=== PATIENT | female | born 1955 | race Caucasian/White ===

== ENCOUNTER 2020-04-26 12:30 | Emergency (ER) | payer MEDICARE, OTHER, SELFPAY ==
[2020-04-26 12:47] VITALS: BP 143/73; BP 155/64; PULSE 69; PULSE 74; RESP 16; TEMP 36.6; O2SAT 96; O2SAT 97; BMI 37.0
--- NOTE | 2020-04-26 12:53 | XR_ITS ---
EXAMINATION: BILATERAL KNEE X-RAY CLINICAL INFORMATION: Fall. Pain and bruising. COMPARISON: None TECHNIQUE: 4 views of each knee FINDINGS: Left: Bone alignment is normal. No fracture or dislocation is seen. Joint spaces are normal. There is no joint effusion. Right: Bone alignment is normal. No fracture or dislocation is seen. Joint spaces are normal. There is no joint effusion. XR/XR knee RT 3V IMPRESSION: No fracture or dislocation seen.
--- NOTE | 2020-04-26 12:53 | XR_ITS ---
EXAMINATION: CHEST X-RAY AND PELVIS AND LEFT HIP X-RAY CLINICAL INFORMATION: Fall COMPARISON: Chest, abdomen and pelvis CT May 2019 TECHNIQUE: 2 views of the chest and one view of the pelvis and 2 views of the left hip FINDINGS: Chest: The cardiac and mediastinal contours are normal. The lungs are clear. There is no pleural effusion or pneumothorax. There are degenerative changes of the spine. Pelvis and left hip: Bone alignment is normal. No fracture or dislocation is seen. There is bilateral hip arthritis with joint space narrowing and osteophyte formation, left greater than right. There are cystic areas in the left femoral head. These are similar to abdominal and pelvic CT scan May 2019 and likely represent subchondral cystic change related to arthritis. There are postsurgical changes with fusion hardware in the lower lumbar spine. Soft tissues are unremarkable. XR/XR chest 2V IMPRESSION: Chest: No evidence for acute disease in the chest Pelvis and left hip x-ray: No fracture or dislocation. Left hip arthritis.
--- NOTE | 2020-04-26 12:53 | XR_ITS ---
EXAMINATION: CHEST X-RAY AND PELVIS AND LEFT HIP X-RAY CLINICAL INFORMATION: Fall COMPARISON: Chest, abdomen and pelvis CT May 2019 TECHNIQUE: 2 views of the chest and one view of the pelvis and 2 views of the left hip FINDINGS: Chest: The cardiac and mediastinal contours are normal. The lungs are clear. There is no pleural effusion or pneumothorax. There are degenerative changes of the spine. Pelvis and left hip: Bone alignment is normal. No fracture or dislocation is seen. There is bilateral hip arthritis with joint space narrowing and osteophyte formation, left greater than right. There are cystic areas in the left femoral head. These are similar to abdominal and pelvic CT scan May 2019 and likely represent subchondral cystic change related to arthritis. There are postsurgical changes with fusion hardware in the lower lumbar spine. Soft tissues are unremarkable. XR/XR hip LT w PEL1V IMPRESSION: Chest: No evidence for acute disease in the chest Pelvis and left hip x-ray: No fracture or dislocation. Left hip arthritis.
--- NOTE | 2020-04-26 12:53 | ECG_ITS ---
Test Reason : FALL Blood Pressure : / mmHG Vent. Rate : 081 BPM Atrial Rate : 081 BPM P-R Int : 178 ms QRS Dur : 086 ms QT Int : 412 ms P-R-T Axes : 072 082 034 degrees QTc Int : 478 ms Poor data quality Normal sinus rhythm Artefactual data in lead V5 Nonspecific ST abnormality Abnormal ECG When compared with ECG of 07-JUN-2019 00:28, Repeat EKG Referred By: Georgia Joseph Electronically Signed By:RAYA BURTON MD
--- NOTE | 2020-04-26 12:53 | CT_ITS ---
EXAMINATION: CT BRAIN AND CT CERVICAL SPINE WITHOUT CONTRAST. CLINICAL INFORMATION: Multiple falls. COMPARISON: None TECHNIQUE: 5 mm thin axial and reformatted 2 mm thin sagittal and coronal images of brain were obtained. Axial 3 mm thin and reformatted 2 mm thin sagittal and coronal images of cervical spine were obtained. DLP 1464 mGy/cm. FINDINGS: BRAIN: There is no acute intra-axial, extra-axial bleed, masses, collection or midline shift. There is no acute infarction in evolution. There is a thalamocaudate groove Virchow Casper space The lateral ventricles are symmetrical in size and configuration without ventriculomegaly. The eng to white matter differentiation is maintained normal. There is no abnormality seen in the posterior fossa. Bone windows reveal no calvarial abnormality. There is no scalp soft tissue swelling. Bilateral paranasal sinuses and mastoid air cells are well-aerated aerated. CERVICAL SPINE: There is mild reversal of cervical lordosis. The vertebral heights, alignment and disc heights are normal. The craniovertebral junction and the C1-C2 alignment is normal. There is no visible acute fracture, dislocation or subluxation seen. No lytic or sclerotic process seen. There is medial deviation of calcified internal carotid arteries in the retropharyngeal space. The prevertebral and paravertebral soft tissues are normal. The thyroid lobes are symmetrical and normal. Both parotid and submandibular glands are symmetrical and normal. The airway is widely patent. The lung apices are clear. Mild degenerative changes right TM joint are noted. CT/CT cervical spine wo con IMPRESSION: No acute intracranial process seen. No visible acute fracture, dislocation or subluxation of cervical spine. Mild degenerative changes right TM joint.
--- NOTE | 2020-04-26 12:53 | XR_ITS ---
EXAMINATION: BILATERAL KNEE X-RAY CLINICAL INFORMATION: Fall. Pain and bruising. COMPARISON: None TECHNIQUE: 4 views of each knee FINDINGS: Left: Bone alignment is normal. No fracture or dislocation is seen. Joint spaces are normal. There is no joint effusion. Right: Bone alignment is normal. No fracture or dislocation is seen. Joint spaces are normal. There is no joint effusion. XR/XR knee LT 3V IMPRESSION: No fracture or dislocation seen.
--- NOTE | 2020-04-26 13:01 | ED.FALL ---
HPI - Fall General Chief Complaint: Fall Stated Complaint: MULTIPLE FALLS Time Seen by Provider: 04/26/20 12:40 Source: patient and EMS Mode of arrival: EMS History of Present Illness HPI Narrative: 64-year-old female with a past medical history of ischemic colitis, PVD, chronic lymphedema, back pain, asthma, GISELLE, BIBA for multiple falls at home since , most recently 2 this morning. Reports she is unsure why she is falling, does not remember the falls and wakes up on the ground. Admits lives with daughter, ambulates with cane at baseline. Reports bilateral knee, and back pain. Denies symptoms prior to fall including CP/SOB, lightheadedness/dizziness. Denies urinary incontinence/retention, recent illness, cough, fever, headache, vision changes, abdominal pain, nausea/vomiting. Admits was recently started on amitriptyline, otherwise no new medications MD complaint: fall Related Data Home Medications Medication Instructions Recorded Confirmed amitriptyline 10 mg PO DAILY 04/26/20 04/26/20 azithromycin 500 mg PO DAILY 04/26/20 04/26/20 cyclobenzaprine 10 mg PO TID PRN 04/26/20 04/26/20 docusate sodium 100 mg PO BID 04/26/20 04/26/20 escitalopram oxalate 20 mg PO DAILY 04/26/20 04/26/20 furosemide 20 mg PO DAILY 04/26/20 04/26/20 lorazepam 0.5 mg PO DAILY 04/26/20 04/26/20 morphine 10 mg PO BID 04/26/20 04/26/20 omeprazole 20 mg PO DAILY PRN 04/26/20 04/26/20 oxycodone 15 mg PO QID 04/26/20 04/26/20 Previous Rx's Medication Instructions Recorded levofloxacin 750 mg PO Q24H 5 Days #5 tab 04/26/20 Allergies Allergy/AdvReac Type Severity Reaction Status Date / Time adhesive tape [TAPE,ADHESIVE] Allergy Unknown RASH Unverified 12/11/19 17:08 amoxicillin [From AUGMENTIN] Allergy Unknown SHORTNESS Unverified 12/11/19 17:08 OF BREATH atropine [From ] Allergy Unknown ANGIOEDEMA Unverified 12/11/19 17:08 bacitracin Allergy Unknown ITCH Unverified 12/11/19 17:08 [From NEOSPORIN ([id number])] bee pollen [BEE STINGS] Allergy Unknown ANGIOEDEMA Unverified 12/11/19 17:08 cephalexin [CEPHALEXIN] Allergy Unknown SHORTNESS Unverified 12/11/19 17:08 OF BREATH clavulanic acid Allergy Unknown SHORTNESS Unverified 12/11/19 17:08 [From AUGMENTIN] OF BREATH clindamycin [CLINDAMYCIN] Allergy Unknown ANAPHYLAXIS Unverified 12/11/19 17:08 doxycycline [DOXYCYCLINE] Allergy Unknown ANGIOEDEMA Unverified 12/11/19 17:08 duloxetine [DULOXETINE] Allergy Unknown UNK Unverified 12/11/19 17:08 hyoscyamine [From ] Allergy Unknown ANGIOEDEMA Unverified 12/11/19 17:08 latex [LATEX] Allergy Unknown ITCHY Unverified 12/11/19 17:08 mineral oil [From AQUAPHOR] Allergy Unknown RASH Unverified 12/11/19 17:08 neomycin Allergy Unknown ITCH Unverified 12/11/19 17:08 [From NEOSPORIN ([id number])] petrolatum,hydrophilic Allergy Unknown RASH Unverified 12/11/19 17:08 [From AQUAPHOR] phenobarbital [From ] Allergy Unknown ANGIOEDEMA Unverified 12/11/19 17:08 polymyxin B Allergy Unknown ITCH Unverified 12/11/19 17:08 [From NEOSPORIN ([id number])] scopolamine [From ] Allergy Unknown ANGIOEDEMA Unverified 12/11/19 17:08 silver nitrate Allergy Unknown SKIN Unverified 12/11/19 17:08 [SILVER NITRATE] REACTION tramadol [TRAMADOL] Allergy Unknown SHORTNESS Unverified 12/11/19 17:08 OF BREATH zinc [ZINC] Allergy Unknown CELLULITIS Unverified 12/11/19 17:08 Bee Sting, Adhesive Tape, Allergy Unknown Uncoded 12/06/17 00:00 late Clindamycin HCl Allergy Unknown Uncoded 12/06/17 00:00 Dogs,neosporin,metal,aquaphor Allergy Unknown Uncoded 12/06/17 00:00 METAL Allergy Unknown RASH Uncoded 12/11/19 17:08 Silver Hydrogel Allergy Unknown Uncoded 12/06/17 00:00 Strawberries Allergy Unknown Uncoded 12/06/17 00:00 Review of Systems Review of Systems: Constitutional: No Weight loss, No Fever, No Chills, No Night Sweats, No Fatigue, No Malaise ENT/Mouth: No Hearing loss, No Ear Pain, No Nasal Congestion, No Sinus Pain, No Hoarseness, No sore throat, No Swallowing Difficulty Eyes: No Eye Pain, No Swelling, No Redness, No Vision Changes Cardiovascular: No Chest Pain, No SOB, No Edema Respiratory: No Cough, No Dyspnea Gastrointestinal: No Nausea, No Vomiting, No Abdominal pain Genitourinary: No Dysuria, No Urinary Frequency, No Hematuria, No Urinary Incontinence, No Urgency, No Flank Pain Musculoskeletal: +joint pain, No Myalgias, + Joint Swelling Skin: + bilateral foot skin breakdown. + ecchymosis Neuro: No Weakness, No Numbness, No Paresthesias, ?Loss of Consciousness, No Dizziness, No Headache Yes all other systems are reviewed and are negative Neurologic: Denies Abnormal speech present [facility] Past Medical History Attestation statement: The following information was validated with the patient. Social History Social History Alcohol intake: never Smoking Status: Current every day smoker Use of substances other than those prescribed or required for medical reasons: No Advance Directives: No Advance Directives Information Provided: No Physical Exam Vital Signs: Vital Signs: Last Vital Signs Temp 98 F 04/26/20 12:47 Pulse 69 04/26/20 12:47 Resp 16 04/26/20 12:47 BP 155/64 H 04/26/20 12:47 Pulse Ox 97 04/26/20 12:47 Body Mass Index 37.0 Const: General: cooperative, alert and awake Orientation/consciousness: patient oriented x3 Limitations: no limitations HENMT: Other: + healing ecchymosis noted to left periorbital area. Small ecchymosis noted to chin. No orbital step-offs or ocular entrapment. No appreciable skull depression/hematoma Head: No Heart's sign Ears: hearing grossly normal bilaterally General nose exam: Normal external nose present Face and sinus: Yes normal facial exam Mouth: mucous membranes dry Eyes: General: appearance normal, both eyes and all related structures Pupils: Equal, round and reactive pupils present EOM: EOMs intact bilaterally Neck: Other: No midline cervical spinous tenderness. No step-offs Neck: Yes normal visual inspection and Yes no meningeal signs Resp: Effort & Inspection: normal respiratory effort Auscultation: clear to auscultation bilaterally and wheezes expiratory wheezes Cardio: Rate: regular rate Heart sounds: S1 normal heart sound present and S2 normal heart sound present GI: Inspection: Yes normal to inspection Palpation (GI): Soft to palpation, nontender, no guarding and not rigid Back/Spine/Pelvis: Other: No midline thoracic/ lumbar spinous tenderness or step offs Skin: Other: + ecchymosis and swelling noted to bilateral knees > right. with +ttp RLE with erythema extending distally from the knee. Warm to touch. NV intact Bilateral feet with macerated skin. No exposed underlying structures, fluctuance, or induration. No crepitus Rashes: no rashes Neuro: General: patient oriented x3, tone normal, moves all extremities, no meningeal signs, no focal motor deficits and CN's II-XI intact bilaterally Cranial nerves: Yes Equal, round and reactive pupils present Cognition (Neuro): normal cognition Speech: No Abnormal speech present Gait exam (Neuro): Normal gait present Motor exam (neuro): 5/5 motor strength present throughout and Pronator motor function not present Sensory Exam: No sensory level loss detected Coordination: [id number] test normal Extrem: Other: Left hip with large area of ecchymosis. Tender to palpation. Hip ROM decreased secondary to pain. Course Course Course Narrative: Head/C-spine CT without acute findings CXR unremarkable Pelvis/left hip x-ray without acute fracture/dislocation Bilateral knee x-rays without fracture or dislocation 1500- labs notable for initial troponin of 5.1. Will obtain 3 hour repeat, otherwise labs unremarkable. UA negative, tox screen positive for opiates, upon medication review patient is on 15mg Oxycodone, 10mg Morphine, 10mg Flexeril, 0.5mg lorazepam, symptoms may be due to poly-pharmacy >> discussed with patient recommendation for PT/case management for short-term rehab. Patient persistently refusing states she has daughter at home with Touretts syndrome who she needs to help take care of. Patient is A&O x3, competent to make her own decisions and is refusing STR. Case discussed with case management who will look in to home VNA services Initiated patient on Bactrim for right lower extremity cellulitis due to multiple allergiesm > patient developed intraoral itching after taking Bactrim. Given p.o. Benadryl. No appreciable intraoral swelling. No respiratory distress. Switched to Bactrim to Levaquin. Patient currently on a Zithromax in for foot infection, instructed to stop taking last dose of azithromycin and start Levaquin 1700--ED care transferred to NATY Galindo pending case management home VNA and repeat troponin MDM - Fall MDM Narrative Medical decision making narrative: 64-year-old female with a past medical history of ischemic colitis, PVD, chronic lymphedema, back pain, asthma, GISELLE, BIBA for multiple falls at home since , most recently 2 this morning. On exam VSS, NAD, physical exam as above. No focal neuro deficits or midline spinous tenderness. No red flag symptoms. Concern for infectious/metabolic etiology causing falls vs polypharmacy. Right lower extremity consistent with cellulitis. Rule out ACS. Rule out fracture/ICH. Lower concern for underlying osteomyelitis/abscess Plan: EKG, labs, UA, imaging, re-evaluation, orthostatics, PT/case management Medical Records Attestation: I reviewed the patient's medical records. Lab Data Attestation: I reviewed the patient's lab results. Result diagrams: 04/26/20 13:44 04/26/20 13:44 Labs: Lab Results 04/26/20 04/26/20 04/26/20 Range/Units 13:44 13:44 13:44 WBC 10.6 (4.8-10.8) X10*3/uL RBC 4.58 (4.20-5.50) X10*6/uL Hgb 12.3 (12.0-16.0) g/dl Hct 39.9 (37-47) % MCV 87.1 (80-98) fL MCH 26.9 L (27.0-33.0) pg MCHC 30.8 L (31.0-35.0) g/dl RDW 16.6 H (11.0-16.0) % Plt Count 488 H (160-400) X10*3/uL MPV 9.1 L (9.4-12.3) fL Immature Gran % (Auto) 0.6 H (0.0-0.4) % Neut % (Auto) 71.1 (45-73) % Lymph % (Auto) 17.5 L (20-40) % [place] % (Auto) 8.5 (2-11) % Eos % (Auto) 1.6 (0-4) % Baso % (Auto) 0.7 (0-2) % Lymph # (Auto) 1.9 (1.2-4.9) X10*3/uL [place] # (Auto) 0.9 (0.1-1.2) X10*3/uL Eos # (Auto) 0.2 (0.0-0.4) X10*3/uL Baso # (Auto) 0.1 (0.0-0.2) X10*3/uL Abs Immat Gran (auto) 0.06 H (0.00-0.03) X10*3/uL Absolute Neuts (auto) 7.5 (2.0-8.3) X10*3/uL Absolute Nucleated RBC 0.000 (0.0-0.012) X10*3/uL Nucleated RBC % (auto) 0.0 (0.0-0.2) /100WBC PT 11.9 (10.8-13.0) SEC INR 1.0 (0.9-1.1) APTT 36.0 (24.1-38.0) SEC Sodium 139 (135-145) mmol/L Potassium 4.5 (3.3-5.1) mmol/L Chloride 104 (96-108) mmol/L Carbon Dioxide 26 (22-29) mmol/L Anion Gap 14 (12-20) BUN 11 (9-16) mg/dL Creatinine 0.67 (0.5-1.4) mg/dL Estim Creat Clear Calc 97.3 Estimated GFR > 60 Random Glucose 107 (60-115) mg/dL Lactic Acid (0.5-2.0) mmol/L Calcium 9.0 (8.4-10.2) mg/dL Magnesium 2.2 (1.6-2.6) mg/dL Total Bilirubin 0.5 (0.0-1.0) mg/dL Direct Bilirubin 0.2 (0.0-0.5) mg/dL AST 14 (5-31) U/L ALT 7 (0-31) U/L Alkaline Phosphatase 125 H (39-117) U/L Total Creatine Kinase 406 H (26-140) U/L Troponin I High Sens (<3.5-17.0) ng/L Total Protein 7.2 (6.5-8.0) g/dL Albumin 4.1 (3.5-5.0) g/dL Lipase 16 (8-78) U/L Urine Color Urine Appearance Urine pH (5.0-8.0) Ur Specific [place] (1.005-1.025) Urine Protein (NEG-TRACE) MG/DL Urine Glucose (UA) (NEG) MG/DL Urine Ketones (NEG) MG/DL Urine Blood (NEG) Urine Nitrite (NEG) Ur Leukocyte Esterase (NEG) Urine Opiates Screen (Not Detect) Ur Barbiturates Screen (Not Detect) Ur Phencyclidine Scrn (Not Detect) Ur Amphetamines Screen (Not Detect) U Benzodiazepines Scrn (Not Detect) Urine Cocaine Screen (Not Detect) U Marijuana (THC) Screen (Not Detect) Coronavirus (PCR) (Negative) Influenza Type A (PCR) (Negative) Influenza Type B (PCR) (Negative) RSV RNA Qual (PCR) (Negative) 04/26/20 04/26/20 04/26/20 Range/Units 13:44 13:44 13:45 WBC (4.8-10.8) X10*3/uL RBC (4.20-5.50) X10*6/uL Hgb (12.0-16.0) g/dl Hct (37-47) % MCV (80-98) fL MCH (27.0-33.0) pg MCHC (31.0-35.0) g/dl RDW (11.0-16.0) % Plt Count (160-400) X10*3/uL MPV (9.4-12.3) fL Immature Gran % (Auto) (0.0-0.4) % Neut % (Auto) (45-73) % Lymph % (Auto) (20-40) % [place] % (Auto) (2-11) % Eos % (Auto) (0-4) % Baso % (Auto) (0-2) % Lymph # (Auto) (1.2-4.9) X10*3/uL [place] # (Auto) (0.1-1.2) X10*3/uL Eos # (Auto) (0.0-0.4) X10*3/uL Baso # (Auto) (0.0-0.2) X10*3/uL Abs Immat Gran (auto) (0.00-0.03) X10*3/uL Absolute Neuts (auto) (2.0-8.3) X10*3/uL Absolute Nucleated RBC (0.0-0.012) X10*3/uL Nucleated RBC % (auto) (0.0-0.2) /100WBC PT (10.8-13.0) SEC INR (0.9-1.1) APTT (24.1-38.0) SEC Sodium (135-145) mmol/L Potassium (3.3-5.1) mmol/L Chloride (96-108) mmol/L Carbon Dioxide (22-29) mmol/L Anion Gap (12-20) BUN (9-16) mg/dL Creatinine (0.5-1.4) mg/dL Estim Creat Clear Calc Estimated GFR Random Glucose (60-115) mg/dL Lactic Acid 1.0 (0.5-2.0) mmol/L Calcium (8.4-10.2) mg/dL Magnesium (1.6-2.6) mg/dL Total Bilirubin (0.0-1.0) mg/dL Direct Bilirubin (0.0-0.5) mg/dL AST (5-31) U/L ALT (0-31) U/L Alkaline Phosphatase (39-117) U/L Total Creatine Kinase (26-140) U/L Troponin I High Sens 5.1 (<3.5-17.0) ng/L Total Protein (6.5-8.0) g/dL Albumin (3.5-5.0) g/dL Lipase (8-78) U/L Urine Color Urine Appearance Urine pH (5.0-8.0) Ur Specific [place] (1.005-1.025) Urine Protein (NEG-TRACE) MG/DL Urine Glucose (UA) (NEG) MG/DL Urine Ketones (NEG) MG/DL Urine Blood (NEG) Urine Nitrite (NEG) Ur Leukocyte Esterase (NEG) Urine Opiates Screen (Not Detect) Ur Barbiturates Screen (Not Detect) Ur Phencyclidine Scrn (Not Detect) Ur Amphetamines Screen (Not Detect) U Benzodiazepines Scrn (Not Detect) Urine Cocaine Screen (Not Detect) U Marijuana (THC) Screen (Not Detect) Coronavirus (PCR) NEGATIVE (Negative) Influenza Type A (PCR) NEGATIVE (Negative) Influenza Type B (PCR) NEGATIVE (Negative) RSV RNA Qual (PCR) NEGATIVE (Negative) 04/26/20 04/26/20 Range/Units 14:08 14:08 WBC (4.8-10.8) X10*3/uL RBC (4.20-5.50) X10*6/uL Hgb (12.0-16.0) g/dl Hct (37-47) % MCV (80-98) fL MCH (27.0-33.0) pg MCHC (31.0-35.0) g/dl RDW (11.0-16.0) % Plt Count (160-400) X10*3/uL MPV (9.4-12.3) fL Immature Gran % (Auto) (0.0-0.4) % Neut % (Auto) (45-73) % Lymph % (Auto) (20-40) % [place] % (Auto) (2-11) % Eos % (Auto) (0-4) % Baso % (Auto) (0-2) % Lymph # (Auto) (1.2-4.9) X10*3/uL [place] # (Auto) (0.1-1.2) X10*3/uL Eos # (Auto) (0.0-0.4) X10*3/uL Baso # (Auto) (0.0-0.2) X10*3/uL Abs Immat Gran (auto) (0.00-0.03) X10*3/uL Absolute Neuts (auto) (2.0-8.3) X10*3/uL Absolute Nucleated RBC (0.0-0.012) X10*3/uL Nucleated RBC % (auto) (0.0-0.2) /100WBC PT (10.8-13.0) SEC INR (0.9-1.1) APTT (24.1-38.0) SEC Sodium (135-145) mmol/L Potassium (3.3-5.1) mmol/L Chloride (96-108) mmol/L Carbon Dioxide (22-29) mmol/L Anion Gap (12-20) BUN (9-16) mg/dL Creatinine (0.5-1.4) mg/dL Estim Creat Clear Calc Estimated GFR Random Glucose (60-115) mg/dL Lactic Acid (0.5-2.0) mmol/L Calcium (8.4-10.2) mg/dL Magnesium (1.6-2.6) mg/dL Total Bilirubin (0.0-1.0) mg/dL Direct Bilirubin (0.0-0.5) mg/dL AST (5-31) U/L ALT (0-31) U/L Alkaline Phosphatase (39-117) U/L Total Creatine Kinase (26-140) U/L Troponin I High Sens (<3.5-17.0) ng/L Total Protein (6.5-8.0) g/dL Albumin (3.5-5.0) g/dL Lipase (8-78) U/L Urine Color YELLOW Urine Appearance CLEAR Urine pH 6.0 (5.0-8.0) Ur Specific [place] <= 1.005 (1.005-1.025) Urine Protein NEG (NEG-TRACE) MG/DL Urine Glucose (UA) NEG (NEG) MG/DL Urine Ketones NEG (NEG) MG/DL Urine Blood NEG (NEG) Urine Nitrite NEG (NEG) Ur Leukocyte Esterase NEG (NEG) Urine Opiates Screen POSITIVE H (Not Detect) Ur Barbiturates Screen Not Detected (Not Detect) Ur Phencyclidine Scrn Not Detected (Not Detect) Ur Amphetamines Screen Not Detected (Not Detect) U Benzodiazepines Scrn Not Detected (Not Detect) Urine Cocaine Screen Not Detected (Not Detect) U Marijuana (THC) Screen Not Detected (Not Detect) Coronavirus (PCR) (Negative) Influenza Type A (PCR) (Negative) Influenza Type B (PCR) (Negative) RSV RNA Qual (PCR) (Negative) ECG Data Attestation: I personally reviewed and interpreted this ECG as follows: ECG interpretation date: 04/26/20 ECG interpretation time: 13:56 Prior ECG tracings: available for review Interpretation: EKG normal sinus rhythm. Rate of 81. No STEMI. Artifact present. Discharge Plan Discharge Clinical Impression: Cellulitis, Multiple falls, Polypharmacy Patient Disposition: Home, Self-Care Instructions: Cellulitis (ED), Fall Prevention (ED) Additional Instructions: You have a skin infection of her right lower leg. Levaquin as an antibiotic, take as prescribed. You also need to follow-up with wound care for your feet in the next few days You need to cut back on your home prescribed pain medications, is likely the cause of her falls. These medications to sedate you and your on multiple medications at high dosages Otherwise your imaging studies were reassuring Case management set up home services for you You need to have close follow-up with her doctor If her symptoms persist or worsen, your leg redness spreads, you fever, or you your chronic foot changes worsen return to the ED Prescriptions: New levofloxacin 750 mg tablet 750 mg PO Q24H 5 Days Qty: 5 RF: 0 No Action cyclobenzaprine 10 mg tablet 10 mg PO TID PRN (Reason: Spasms) RF: 0 morphine 30 mg tablet extended release 10 mg PO BID RF: 0 oxycodone 15 mg tablet 15 mg PO QID RF: 0 lorazepam 0.5 mg tablet 0.5 mg PO DAILY RF: 0 amitriptyline 10 mg tablet 10 mg PO DAILY RF: 0 docusate sodium 100 mg capsule 100 mg PO BID RF: 0 omeprazole 20 mg capsule,delayed release(DR/EC) 20 mg PO DAILY PRN (Reason: Acid Reflux) RF: 0 furosemide 20 mg tablet 20 mg PO DAILY RF: 0 azithromycin 500 mg tablet 500 mg PO DAILY RF: 0 escitalopram oxalate 20 mg tablet 20 mg PO DAILY RF: 0 Referrals: Juan Alberto Espinoza MD [Primary Care Provider] - 2 days Delicia Villarreal PA [Physician Liability Claims Manager] - 2 days
--- NOTE | 2020-04-26 13:29 | XR_ITS ---
EXAMINATION: BILATERAL FOOT CLINICAL INFORMATION: Evaluate osteomyelitis or infection. COMPARISON: None TECHNIQUE: 3 views each feet. FINDINGS: RIGHT FOOT: There is mild hallux valgus deformity first MTP joint. No visible fracture or bony abnormality seen. The the ankle mortise and subtalar joints are normal. No bony erosive changes seen. The soft tissues are normal. LEFT FOOT: There is no visible acute fracture, dislocation or subluxation. No bony erosive changes. The ankle mortise and subtalar joints are normal. No periosteal elevation seen. The soft tissues are normal XR/XR foot LT min 3V IMPRESSION: Unremarkable left foot exam. Mild hallux valgus deformity first MTP joint.
--- NOTE | 2020-04-26 13:29 | XR_ITS ---
EXAMINATION: BILATERAL FOOT CLINICAL INFORMATION: Evaluate osteomyelitis or infection. COMPARISON: None TECHNIQUE: 3 views each feet. FINDINGS: RIGHT FOOT: There is mild hallux valgus deformity first MTP joint. No visible fracture or bony abnormality seen. The the ankle mortise and subtalar joints are normal. No bony erosive changes seen. The soft tissues are normal. LEFT FOOT: There is no visible acute fracture, dislocation or subluxation. No bony erosive changes. The ankle mortise and subtalar joints are normal. No periosteal elevation seen. The soft tissues are normal XR/XR foot RT min 3V IMPRESSION: Unremarkable left foot exam. Mild hallux valgus deformity first MTP joint.
[2020-04-26 13:53] LABS: MANUAL DIFF FLAG NO
[2020-04-26 13:55] LABS: Basophils Absolute Auto 0.1 X10*3/uL (0.0-0.2); Basophils Percent Auto 0.7 % (0-2); Eosinophils Absolute Auto 0.2 X10*3/uL (0.0-0.4); Eosinophils Percent Auto 1.6 % (0-4); Hematocrit 39.9 % (37-47); Hemoglobin 12.3 g/dl (12.0-16.0); Imm Gran Abs Auto 0.06 X10*3/uL (0.00-0.03); Imm Gran Pct Auto 0.6 % (0.0-0.4); Lymphocytes Absolute Auto 1.9 X10*3/uL (1.2-4.9); Lymphocytes Percent Auto 17.5 % (20-40); Mean Corpuscular HGB Conc 30.8 g/dl (31.0-35.0); Mean Corpuscular Hemoglobin 26.9 pg (27.0-33.0); Mean Corpuscular Volume 87.1 fL (80-98); Mean Platelet Volume 9.1 fL (9.4-12.3); Monocytes Absolute Auto 0.9 X10*3/uL (0.1-1.2); Monocytes Percent Auto 8.5 % (2-11); Neutrophils Absolute Auto 7.5 X10*3/uL (2.0-8.3); Neutrophils Percent Auto 71.1 % (45-73); Platelet Count 488 X10*3/uL (160-400); Red Blood Count 4.58 X10*6/uL (4.20-5.50); Red Cell Distribution Width 16.6 % (11.0-16.0); White Blood Count 10.6 X10*3/uL (4.8-10.8)
[2020-04-26 14:00] LABS: Prothrombin Time 11.9 SEC (10.8-13.0)
[2020-04-26 14:18] LABS: Alanine Aminotransferase 7 U/L (0-31); Albumin Level 4.1 g/dL (3.5-5.0); Alkaline Phosphatase 125 U/L (39-117); Anion Gap 14 (12-20); Aspartate Amino Transferase 14 U/L (5-31); Bilirubin Direct 0.2 mg/dL (0.0-0.5); Bilirubin Total 0.5 mg/dL (0.0-1.0); Blood Urea Nitrogen 11 mg/dL (9-16); Carbon Dioxide 26 mmol/L (22-29); Chloride 104 mmol/L (96-108); Creatinine Clr Calc Pharmacy 97.3; Estimated Glomerular Filt Rate > 60; Glucose Random 107 mg/dL (60-115); Lipase 16 U/L (8-78); Magnesium 2.2 mg/dL (1.6-2.6); Potassium 4.5 mmol/L (3.3-5.1); Sodium 139 mmol/L (135-145); Total Protein 7.2 g/dL (6.5-8.0)
[2020-04-26 14:21] LABS: Troponin-I High Sensitivity 5.1 ng/L (<3.5-17.0)
[2020-04-26 14:23] LABS: Appearance Urine CLEAR; Color Urine YELLOW; Glucose Urine UA NEG (NEG); Leukocyte Esterase Urine NEG (NEG); Nitrite Urine NEG (NEG); Specific Gravity - Urine <= 1.005 (1.005-1.025); Urine Blood NEG (NEG); Urine Ketones NEG (NEG); Urine Protein NEG (NEG-TRACE)
[2020-04-26] MEDS: 0.9 % Sodium Chloride 500 ML 999 ML IV (14:25)
[2020-04-26] MEDS: Acetaminophen 325 MG TABLET 650 MG PO (14:25)
[2020-04-26 14:31] LABS: Influenza A PCR NEGATIVE (Negative); Influenza B PCR NEGATIVE (Negative); Resp Syncy Virus RNA Qual PCR NEGATIVE (Negative); SARS COV2 PCR INHOUSE NEGATIVE (Negative)
[2020-04-26 14:55] LABS: Amphetamine Screen Urine Not Detected (Not Detect); Barbiturates, Urine Not Detected (Not Detect); Benzodiazepines Screen Urine Not Detected (Not Detect); Cannabinoid Screen Urine Not Detected (Not Detect); Cocaine Screen Urine Not Detected (Not Detect); Opiate Screen Urine POSITIVE (Not Detect); Phencyclidine Screen Urine Not Detected (Not Detect)
--- NOTE | 2020-04-26 16:31 | PC.NURSE ---
PT EXPRESSES WANTING TO GO HOME, HAS NO MOTIVATION TO STAY INPT, EVEN IF CLINICALLY NECESSARY. PROVIDER AWARE, PT LIVES AT HOME W DAUGHTER. CASE MGMT WORKING W PT TO [facility]CREASE [facility]. JANETH.
[2020-04-26] MEDS: Albuterol Sulfate 90 MCG 8 GM INHALER 4 PUFF INHALE (16:40)
[2020-04-26] MEDS: diphenhydrAMINE HCL 25 MG TABLET PO (17:16)
--- NOTE | 2020-04-26 18:09 | PC.NURSE ---
case mgmt continuing to work w pt to ensure safe discharge home. pt still refusing pt morning eval and short term rehab placement.
--- NOTE | 2020-04-26 18:53 | MHC.CM.ED ---
Met with pt. aware that pt. wants to go home and will not stay overnight for a PT evaluation. Pt is agreeable to having [facility] services. Pt requesting [facility]. Referral placed with [facility] for fpc, home safety eval, vs, chronic disease management, medication management, and RN to assess for need for PT evaluation. Pt has left ecchymotic eye. States she needs to care for her daughter, who also cares for her. Her daughter lives with her and her grandson will provide transportation home. Pt uses a cane and walker. Also has a wheelchair. Pt has poly pharmacy use: takes oxycontin, morphine, flexeril and lorazepam. Work up negative. Face to face completed and faxed to [employer]. CM to follow for d/c needs.
== END 2020-04-26 18:53 | disposition home or self-care (01) ==
PROVIDERS: Physician Assistant; Emergency Provider Emergency Medicine; PCP Internal Medicine
DX: L03.115 Cellulitis of right lower limb (principal); Z20.822 Contact with and (suspected) exposure to COVID-19; Z91.81 History of falling; F17.200 Nicotine dependence, unspecified, uncomplicated
CPT/HCPCS: 0241U; 36415; 70450; 71046; 72125; 73502; 73562; 73630; 80048; 80076; 80307; 81003; 82550; 83605; 83690; 83735; 84484; 85025; 85610; 85730; 87040; 93005; 99284; Q0163

== ENCOUNTER → 2020-05-28 14:12 | Outpatient (BNVA) | payer MEDICARE, OTHER, SELFPAY | PROVIDERS: PCP Internal Medicine; Visit Provider Internal Medicine | DX: R21 Rash and other nonspecific skin eruption (principal) | CPT/HCPCS: 99202 ==

== ENCOUNTER → 2020-09-15 11:37 | Outpatient (BNVA) | payer MEDICARE, OTHER, SELFPAY | PROVIDERS: PCP Internal Medicine; Visit Provider Internal Medicine | DX: R21 Rash and other nonspecific skin eruption (principal); J44.9 Chronic obstructive pulmonary disease, unspecified; J30.81 Allergic rhinitis due to animal (cat) (dog) hair and dander; Z88.1 Allergy status to other antibiotic agents; Z91.030 Bee allergy status; Z91.040 Latex allergy status; Z88.8 Allergy status to other drugs, medicaments and biological substances; Z91.018 Allergy to other foods; Z91.09 Other allergy status, other than to drugs and biological substances | CPT/HCPCS: Q3014 ==

== ENCOUNTER 2022-07-31 15:13 | Outpatient (REF) | payer OTHER, SELFPAY ==
[2022-07-31 18:38] LABS: Appearance Urine Clear; Color Urine Yellow; Glucose Urine UA Negative (Negative); Leukocyte Esterase Urine Negative (Negative); Nitrite Urine Negative (Negative); PH 7.5 (5.0-9.0); Urine Blood Negative (Negative); Urine Ketones Negative (Negative); Urine Protein Negative (Neg-Trace)
== END 2022-07-31 15:14 | disposition home or self-care (01) ==
LOC: HO.MANLNP 15:13
PROVIDERS: Visit Provider Physician Assistant
DX: R30.0 Dysuria (principal)
CPT/HCPCS: 81003